=== PATIENT | male | born 1995 | race Caucasian/White ===

== ENCOUNTER 2018-09-12 13:11 | Day surgery (SDC) | payer BC ==
[~2018-09-12 13:11] MED LIST: Buffered Lidocaine 0.9% SYRIN* 5 ML/SYR SYRINGE INTRADERM ONE; Dexamethasone TAB* 4 MG ONE; Dexamethasone TAB* 4 MG PO ONE; DiMENhydriNATE IV* 50 MG/ML VIAL IV PUSH PRN; Famotidine IV* 10 MG/ML 2 ML (20 mg) IV ONE; Famotidine IV* 10 MG/ML 2 ML (20 mg) ONE; Morphine VIAL* 4 MG/ML VIAL (1 ml vial) IV PRN; Naloxone* 0.4 MG/ML 1 ML VIAL IV PRN; Ondansetron ODT TAB* 4 MG ONE; Ondansetron TAB* 4 MG PO ONE; PROCHLORPERAZINE INJ 5 MG/ML 2 ML VIAL IV PRN; Scopolamine 1.5 mg* PATCH TRANSDERM PRN; fentaNYL* 50 MCG/ML 2 ML VIAL (100 MCG VIAL) IV PRN; oxyCODONE/Acetamin 5/325 MG* TAB PO PRN
[2018-09-12] MEDS ORDERED: ceFAZolin 2 GM PREMIX in ORs 2 GM/50 ML BAG IVPB ONE (13:22)
[2018-09-12] MEDS ORDERED: Lidocaine 1% INJ* 10 MG/ML 30 ML SDV ONE (13:37)
[2018-09-12] MEDS ORDERED: fentaNYL* 50 MCG/ML 2 ML VIAL (100 MCG VIAL) ONE (13:38)
[2018-09-12] MEDS ORDERED: KETAMINE HCL* 50 MG/ML 10 ML VIAL ONE (13:38)
[2018-09-12] MEDS ORDERED: Midazolam* 1 MG/ML 5 ML VIAL (5 MG) ONE (13:38)
[2018-09-12] MEDS ORDERED: Lidocaine 2% PF * 5 ML VIAL ONE (14:19)
[2018-09-12] MEDS ORDERED: Ketorolac INJ* 30 MG/ML 1 ML VIAL ONE (14:19)
[2018-09-12] MEDS ORDERED: Propofol* 10 MG/ML 20 ML BTL IV PUSH ONE (14:19)
[2018-09-12 16:51] VITALS: BP 116/64
--- NOTE | 2018-09-13 08:00 | OP ---
DATE OF OPERATION: 09/12/18 [facility] DATE OF : [birth year]. SURGEON: Edda Prasad MD. SECTION 8 PROPERTY MANAGER: MINDY Yousif. ANESTHESIA: General. PRE-OP DIAGNOSIS: Left thumb, index and middle finger laceration with digital nerve lacerations of the index finger and flexor tendon laceration of the thumb. POST-OP DIAGNOSIS: Left thumb, index and middle finger laceration with digital nerve laceration of the index finger and flexor tendon laceration of the thumb plus ulnar digital nerve laceration of the thumb and flexor tendon laceration of the index finger, partial. OPERATIVE PROCEDURE: Left thumb and index finger exploration, flexor tendon repair of the left thumb, one digital nerve repair of the left thumb, flexor tendon repair of the left index finger, two digital nerve repairs of the left index finger. ESTIMATED BLOOD LOSS: Zero. TOURNIQUET TIME: 90 minutes. INDICATIONS FOR PROCEDURE: Lemuel is a 23-year-old male who was using a table saw and he suffered severe lacerations of his left hand involving the thumb, index and middle fingers. He has no deficits in the middle finger, but has no sensation in the index finger and decreased sensation on the portion of the thumb. X-ray showed a complete dislocation of the IP joint of the thumb. He presents for wound exploration, nerve and tendon repair. DESCRIPTION OF PROCEDURE: The patient was brought to the operating room, was given a general anesthetic and placed in a supine position on the operating table. The tourniquet around his left upper arm. The skin of the left upper extremity was prepped and draped in the usual sterile fashion. The upper extremity was exsanguinated and the tourniquet elevated to 250 mmHg. The sutures were removed from the index finger and the thumb. The index finger wound was extended proximally a bit and then we explored the wound. There was a complete laceration of the flexor digitorum superficialis and a partial 40% laceration of the flexor digitorum profundus, the FDP laceration was repaired with 4-0 Prolene suture and then the digital nerve lacerations were repaired under 4x loupe magnification with 8-0 nylon suture. There was no gapping of the nerve after repair. The wound was irrigated and the skin edges were reapproximated with 4-0 nylon sutures. The thumb wound was then explored. The radial digital nerve was intact. The ulnar digital nerve was completely lacerated as was the flexor tendon and there were cartilage deficits at the IP joint on both the proximal phalanx and the distal phalanx. The joint was reduced. The flexor tendon was retrieved through the flexor tendon sheath and then secured to the distal phalanx through drill holes in the distal phalanx and with 4-0 Prolene suture grasping suture for core. The sutures were then drawn through the distal phalanx and tied over a button on the fingernail. The digital nerve laceration was then repaired with 8-0 nylon suture again under 4x loupe magnification. The wound was irrigated and the skin edges reapproximated with 4-0 nylon suture. The wounds were dressed with Xeroform, 4x4, Webril, and a thumb spica split and a dorsal extension blocking splint for the index finger to protect the digital nerve repairs. The patient tolerated the procedure well , was awakened from general anesthesia and brought to the recovery room in good condition. [id number]/[facility] #: [id number] RAIMUNDO
[2018-09-15] MEDS ORDERED: Scopolamine PATCH Remove* 1 NOTE MISC PATCH OFF ONE (06:02)
== END 2018-09-12 17:13 | disposition home or self-care (01) ==
LOC: OREAST 13:11
PROVIDERS: ATTEND Orthopaedic Surgery
DX: S66.022A Laceration of long flexor muscle, fascia and tendon of left thumb at wrist and hand level, initial encounter (principal); S64.32XA Injury of digital nerve of left thumb, initial encounter; S64.491A Injury of digital nerve of left index finger, initial encounter; S66.321A Laceration of extensor muscle, fascia and tendon of left index finger at wrist and hand level, initial encounter; X58.XXXA Exposure to other specified factors, initial encounter
CPT/HCPCS: A9270-GY; J0690; J1885; J2250; J2704; J3010; J8540